=== PATIENT | female | born 1950 | race Caucasian/White ===

== ENCOUNTER → 2019-11-08 | Outpatient (CLI) | payer MEDICARE, BC | END | disposition home or self-care (01) | LOC: LABWHC1 13:10 | PROVIDERS: ATTEND Family Medicine | DX: Z11.59 Encounter for screening for other viral diseases (principal) | CPT/HCPCS: U0003; C9803 ==

== ENCOUNTER → 2019-12-04 | Outpatient (CLI) | payer MEDICARE, BC ==
--- NOTE | 2019-12-04 12:53 | CT ---
EXAMINATION TYPE: CT cervical spine wo con DATE OF EXAM: 12/04/2019 COMPARISON: None HISTORY: Neck pain after injury x2 weeks CT DLP: 338 mGycm Automated exposure control for dose reduction was used. TECHNIQUE: CT scan of the cervical spine is obtained without contrast, axial images are obtained, sa gittal and coronal reformatted images are also reviewed. FINDINGS: Cervical spine is visualized in its entirety from C1 through upper thoracic levels. There is straight ening and mild reversal of the cervical lordosis. No acute fracture or dislocation. Grade 1 anterolis thesis of C4 on C5. Marked degenerative disc disease, disc space narrowing, anterior and posterior os teophytic spurring, uncovertebral hypertrophy, and facet arthropathy, with varying degrees of neural foramina narrowing and canal stenosis. Moderate canal stenosis at C5-C6 and C6-C7. Prevertebral soft tissue within normal limits. Atlantoaxial relationship preserved with degenerative change. Thyroid gland is heterogeneously enlarged bilaterally with multiple hyperdense nodules. IMPRESSION: 1. No acute fracture or dislocation evident in the cervical spine. 2. Marked degenerative changes with moderate canal stenosis at C5-C6 and C6-C7. 2. Heterogenous enlarged thyroid gland bilaterally with multiple hyperdense nodules. Follow-up with n onemergent outpatient thyroid ultrasound or prior available outside imaging is recommended.
--- NOTE | 2019-12-04 13:27 | CT ---
EXAMINATION TYPE: CT brain wo con DATE OF EXAM: 12/04/2019 HISTORY: Head injury 2 weeks ago Automated Exposure Control for Dose Reduction was Utilized. TECHNIQUE: CT scan of the head is performed without contrast. COMPARISON: None FINDINGS: There is no acute intracranial hemorrhage, midline shift, or mass effect identified. Mild periventric ular patchy white matter hypodensities likely sequela of chronic microvascular ischemic changes. The ventricles, sulci, and cisterns are normal in size and configuration. No extra-axial fluid collection. Bones and extracranial soft tissues are intact. The globes are gross ly symmetric. Visualized sinuses and mastoid air cells are clear. IMPRESSION: No acute intracranial hemorrhage, midline shift, or mass effect.
== END | disposition home or self-care (01) ==
LOC: RADCTMAIN 12:10
PROVIDERS: ATTEND Family Medicine
DX: M48.02 Spinal stenosis, cervical region (principal); M47.892 Other spondylosis, cervical region; S09.90XA Unspecified injury of head, initial encounter; S13.9XXA Sprain of joints and ligaments of unspecified parts of neck, initial encounter; E04.9 Nontoxic goiter, unspecified
CPT/HCPCS: 70450; 72125

== ENCOUNTER → 2020-05-05 | Outpatient (CLI) | payer MEDICARE, BC ==
--- NOTE | 2020-05-05 15:02 | XR ---
EXAMINATION TYPE: XR chest 2V DATE OF EXAM: 05/05/2020 COMPARISON: NONE TECHNIQUE: PA and lateral views submitted. HISTORY: Cough FINDINGS: The lungs are clear and there is no pneumothorax, pleural effusion, or focal pneumonia. Heart size normal. Atherosclerotic change aorta. No overt failure. Hypertrophic and degenerative change of the s pine. Hyperinflation of the lungs. IMPRESSION: 1. No acute process.
--- NOTE | 2020-05-05 16:34 | US ---
EXAMINATION TYPE: US thyroid st tissue head/neck DATE OF EXAM: 05/05/2020 COMPARISON: CT cervical spine 12/04/2019 CLINICAL HISTORY: 69-year-old female E04.1 thyroid nodule. Follow up from previous CT, history of thy roid FNA GLAND SIZE: Right Lobe: 4.5 x 1.4 x 1.8 cm Overall Parenchyma: homogenous Left Lobe: 4.8 x 1.6 x 1.7 cm Overall Parenchyma: homogeneous Isthmus Thickness: 0.2 cm NODULES RIGHT: # of nodules measured on right: 3 1. 0.8 X 0.4 x 0.6 cm lateral mid pole spongiform nodule, which is wider than tall, with smooth mar gins, without echogenic foci. Prior size: no previous 2. 0.5 X 0.4 x 0.5 cm mid pole colloid cyst, with echogenic foci. Prior size: no previous 3. 0.9 X 0.5 x 0.9 cm medial mid pole heterogeneous hypoechoic nodule, which is wider than tall, wi th smooth margins, without echogenic foci. Prior size: no previous LEFT: # of nodules measured on left: 2 1. 1.3 X 0.7 x 1.0 cm lateral mid pole solid or almost completely solid, hypoechoic nodule, which i s wider than tall, with smooth margins, without echogenic foci. Prior size: no previous 2. 0.4 X 0.3 x 0.4 cm lateral inferior pole very hypoechoic nodule with posterior through transmiss ion, which is wider than tall, with smooth margins, without echogenic foci. Prior size: no previous ISTHMUS: # of nodules measured in the isthmus: 0 Bilateral neck scanned, no evidence of lymphadenopathy. Work Measurement Engineer notes: Multiple nodules seen bilaterally with largest described above. IMPRESSION: 1. Multiple nodules with borderline thyromegaly. Correlate for multinodular goiter. 2. The largest nodule is a solid TR4 nodule measuring 1.3 cm at the left midpole. Follow-up recommend ed. This can be sampled if it reaches 1.5 cm..
== END | disposition home or self-care (01) ==
LOC: RADUSWWP 13:24
PROVIDERS: ATTEND Internal Medicine Endocrinology, Diabetes & Metabolism
DX: E04.2 Nontoxic multinodular goiter (principal); R05 Cough
CPT/HCPCS: 71046; 76536

== ENCOUNTER → 2020-06-20 | Outpatient (CLI) | payer MEDICARE, BC ==
--- NOTE | 2020-06-20 14:48 | US ---
EXAMINATION TYPE: US kidneys/renal and bladder DATE OF EXAM: 06/20/2020 COMPARISON: NONE CLINICAL HISTORY: 69-year-old female N18.9 Chronic kidney disease. CKD TECHNIQUE: Multiple sonographic images of the kidneys and bladder are obtained. FINDINGS: EXAM MEASUREMENTS: Right Kidney: 8.2 x 4.9 x 4.2 cm Left Kidney: 10.0 x 5.0 x 4.1 cm Right Kidney: atrophic, no evidence of hydronephrosis Left Kidney: no evidence of hydronephrosis Bladder: No gross abnormality. Bilateral Jets seen: no IMPRESSION: Slightly small/atrophic right kidney. No hydronephrosis.
== END | disposition home or self-care (01) ==
LOC: RADUSWWP 12:16
PROVIDERS: ATTEND Family Medicine
DX: N18.9 Chronic kidney disease, unspecified (principal); N26.1 Atrophy of kidney (terminal)
CPT/HCPCS: 76770

== ENCOUNTER 2020-10-13 10:05 | Emergency (ER) | payer MEDICARE, BC ==
[2020-10-13 10:28] VITALS: TEMP 98.1
--- NOTE | 2020-10-13 11:36 | ED ---
General Adult HPI - General Chief complaint: Extremity Problem,Nontraumatic Stated complaint: feet pain & swelling Source: patient, RN notes reviewed, old records reviewed Mode of arrival: ambulatory Limitations: no limitations - History of Present Illness Initial comments: 69-year-old well-appearing well-nourished female, alert and oriented 4, presents to the emergency room with 1 week of bilateral lower extremity swelling. Patient states that she sees Dr. Winslow and was taken off her antihypertensive with hydrochlorothiazide and put on amlodipine 2.5 mg. She started to notice that her feet have been swelling and painful. She denies any cough or chest pain. No fevers, nausea, vomiting or diarrhea. She states that the pain and swelling is so significant that it hurts to walk, pain is 9 out of 10. She states that she googled her symptoms and it was exactly matching to plantar fasciitis however her sister said that it is not normally both feet and wanted her assessed. Patient has a history of hypertension and hypercholesterolemia. Patient denies any injuries. She states that the pain and swelling does not get better with elevation or rest. -: week(s) (1) Location: lower extremity (Bilateral lower extremity swelling) Quality: aching Consistency: constant Improves with: none Worsens with: other (Standing or walking) Associated Symptoms: denies other symptoms Treatments Prior to Arrival: none - Related Data Home Medications Medication Instructions Recorded Confirmed HYDROcodone/APAP 5-325MG [[place] 0.5 - 1 tab PO TID PRN 10/13/20 10/13/20 5-325] Simvastatin [Zocor] 20 mg PO DAILY 10/13/20 10/13/20 amLODIPine [Norvasc] 2.5 mg PO DAILY 10/13/20 10/13/20 Allergies Allergy/AdvReac Type Severity Reaction Status Date / Time No Known Allergies Allergy Verified 10/13/20 12:12 Review of Systems ROS Statement: Those systems with pertinent positive or pertinent negative responses have been documented in the HPI. ROS Other: All systems not noted in ROS Statement are negative. Past Medical History Past Medical History: Hyperlipidemia, Hypertension History of Any Multi-Drug Resistant Organisms: None Reported Past Surgical History: Orthopedic Surgery Additional Past Surgical History / Comment(s): bilateral hip replacement Past Psychological History: No Psychological Hx Reported Smoking Status: Never smoker Past Alcohol Use History: Occasional Past Drug Use History: None Reported General Exam Limitations: no limitations General appearance: alert, in no apparent distress Head exam: Present: atraumatic, normocephalic, normal inspection Eye exam: Present: normal appearance, PERRL, EOMI. Absent: scleral icterus, conjunctival injection, periorbital swelling ENT exam: Present: normal exam, normal oropharynx, mucous membranes moist Neck exam: Present: normal inspection, full ROM. Absent: tenderness, meningismus, lymphadenopathy, thyromegaly Respiratory exam: Present: normal lung sounds bilaterally. Absent: respiratory distress, wheezes, rales, rhonchi, stridor, chest wall tenderness, accessory muscle use, decreased breath sounds, prolonged expiratory Cardiovascular Exam: Present: regular rate, normal rhythm, normal heart sounds. Absent: systolic murmur, diastolic murmur, rubs, gallop, clicks GI/Abdominal exam: Present: soft, normal bowel sounds. Absent: distended, tenderness, guarding, rebound, rigid Extremities exam: Present: normal inspection, full ROM, tenderness (Bilateral feet), normal capillary refill, pedal edema (Bilateral). Absent: joint swelling, calf tenderness Left Foot/Toe exam: Present: tenderness, swelling. Absent: erythema Neurovascular tendon exam: Absent: extremity cold to touch, pallor Right Ankle exam: Present: tenderness, swelling. Absent: erythema Neurovascular tendon exam: Present: no vascular compromise. Absent: pulse deficit, abnormal cap refill, extremity cold to touch, foot drop Back exam: Present: normal inspection, full ROM. Absent: tenderness, CVA tenderness (R), CVA tenderness (L), muscle spasm, paraspinal tenderness, vertebral tenderness, rash noted Neurological exam: Present: alert, oriented X3, CN II-XII intact Psychiatric exam: Present: normal affect, normal mood Skin exam: Present: warm, dry, intact, normal color. Absent: rash, cyanosis, diaphoretic, erythema, petechiae, pallor, mottled Course Vital Signs 10/13/20 10/13/20 10:23 13:31 Temperature 98.1 F Pulse Rate 80 72 Respiratory 16 18 Rate Blood Pressure 160/89 145/67 O2 Sat by Pulse 97 98 Oximetry EKG Findings - EKG Results: EKG: sinus rhythm (Ventricular rate of 60, DE interval 0.156, QRS of 0.86, QTC of 0.397) Medical Decision Making - Medical Decision Making EKG shows normal sinus rhythm with no ectopy. Troponin is negative at 0.012. Chest x-ray is negative for any infiltrates or pulmonary edema. Patient has no chest pain or shortness of breath or cough. She has bilateral pedal edema +1. She was taken off her hydrochlorothiazide 2 weeks ago and for the past week has had leg swelling. Patient was given 20 mg of Lasix in the emergency room. She will be discharged home to follow up with her primary care doctor. Return if worsening symptoms. Case discussed with Dr. Johansen - Lab Data Result diagrams: 10/13/20 12:11 10/13/20 12:11 Lab Results 10/13/20 10/13/20 10/13/20 Range/Units 12:11 12:11 12:11 WBC 7.6 (3.8-10.6) k/uL RBC 4.95 (3.80-5.40) m/uL Hgb 14.5 (11.4-16.0) gm/dL Hct 44.9 (34.0-46.0) % MCV 90.7 (80.0-100.0) fL MCH 29.2 (25.0-35.0) pg MCHC 32.2 (31.0-37.0) g/dL RDW 13.0 (11.5-15.5) % Plt Count 244 (150-450) k/uL MPV 7.1 Neutrophils % 67 % Lymphocytes % 22 % Monocytes % 6 % Eosinophils % 3 % Basophils % 1 % Neutrophils # 5.1 (1.3-7.7) k/uL Lymphocytes # 1.7 (1.0-4.8) k/uL Monocytes # 0.5 (0-1.0) k/uL Eosinophils # 0.2 (0-0.7) k/uL Basophils # 0.1 (0-0.2) k/uL Sodium 140 (137-145) mmol/L Potassium 3.9 (3.5-5.1) mmol/L Chloride 105 (98-107) mmol/L Carbon Dioxide 30 (22-30) mmol/L Anion Gap 5 mmol/L BUN 15 (7-17) mg/dL Creatinine 0.95 (0.52-1.04) mg/dL Est GFR (CKD-EPI)AfAm 70 (>60 ml/min/1.73 sqM) Est GFR (CKD-EPI)NonAf 61 (>60 ml/min/1.73 sqM) Glucose 108 H (74-99) mg/dL Calcium 9.8 (8.4-10.2) mg/dL Magnesium 1.8 (1.6-2.3) mg/dL Total Bilirubin 0.6 (0.2-1.3) mg/dL AST 24 (14-36) U/L ALT 16 (4-34) U/L Alkaline Phosphatase 77 (38-126) U/L Troponin I (0.000-0.034) ng/mL NT-Pro-B Natriuret Pep pg/mL Total Protein 6.8 (6.3-8.2) g/dL Albumin 4.1 (3.5-5.0) g/dL Urine Color Light Yellow Urine Appearance Clear (Clear) Urine pH 5.0 (5.0-8.0) Ur Specific [place] 1.005 (1.001-1.035) Urine Protein Negative (Negative) Urine Glucose (UA) Negative (Negative) Urine Ketones Negative (Negative) Urine Blood Negative (Negative) Urine Nitrite Negative (Negative) Urine Bilirubin Negative (Negative) Urine Urobilinogen <2.0 (<2.0) mg/dL Ur Leukocyte Esterase Negative (Negative) 10/13/20 10/13/20 Range/Units 12:11 12:11 WBC (3.8-10.6) k/uL RBC (3.80-5.40) m/uL Hgb (11.4-16.0) gm/dL Hct (34.0-46.0) % MCV (80.0-100.0) fL MCH (25.0-35.0) pg MCHC (31.0-37.0) g/dL RDW (11.5-15.5) % Plt Count (150-450) k/uL MPV Neutrophils % % Lymphocytes % % Monocytes % % Eosinophils % % Basophils % % Neutrophils # (1.3-7.7) k/uL Lymphocytes # (1.0-4.8) k/uL Monocytes # (0-1.0) k/uL Eosinophils # (0-0.7) k/uL Basophils # (0-0.2) k/uL Sodium (137-145) mmol/L Potassium (3.5-5.1) mmol/L Chloride (98-107) mmol/L Carbon Dioxide (22-30) mmol/L Anion Gap mmol/L BUN (7-17) mg/dL Creatinine (0.52-1.04) mg/dL Est GFR (CKD-EPI)AfAm (>60 ml/min/1.73 sqM) Est GFR (CKD-EPI)NonAf (>60 ml/min/1.73 sqM) Glucose (74-99) mg/dL Calcium (8.4-10.2) mg/dL Magnesium (1.6-2.3) mg/dL Total Bilirubin (0.2-1.3) mg/dL AST (14-36) U/L ALT (4-34) U/L Alkaline Phosphatase (38-126) U/L Troponin I <0.012 (0.000-0.034) ng/mL NT-Pro-B Natriuret Pep 267 pg/mL Total Protein (6.3-8.2) g/dL Albumin (3.5-5.0) g/dL Urine Color Urine Appearance (Clear) Urine pH (5.0-8.0) Ur Specific [place] (1.001-1.035) Urine Protein (Negative) Urine Glucose (UA) (Negative) Urine Ketones (Negative) Urine Blood (Negative) Urine Nitrite (Negative) Urine Bilirubin (Negative) Urine Urobilinogen (<2.0) mg/dL Ur Leukocyte Esterase (Negative) Disposition Clinical Impression: Leg swelling Disposition: HOME SELF-CARE Condition: Good Instructions (If sedation given, give patient instructions): Leg Edema (ED) Additional Instructions: Return to the emergency room with any shortness of breath or chest pain. Follow-up with the primary care doctor this week. Is patient prescribed a controlled substance at d/c from ED?: No Referrals: Tawnya Cunningham MD [Primary Care Provider] - 1-2 days Time of Disposition: 13:43
[2020-10-13 12:45] LABS: Basophils # (A) 0.1 k/uL (0-0.2); Basophils % (A) 1 %; Eosinophils # (A) 0.2 k/uL (0-0.7); Eosinophils % (A) 3 %; HCT 44.9 % (34.0-46.0); HGB 14.5 gm/dL (11.4-16.0); Lymphocytes # (A) 1.7 k/uL (1.0-4.8); Lymphocytes % (A) 22 %; MCH 29.2 pg (25.0-35.0); MCHC 32.2 g/dL (31.0-37.0); MCV 90.7 fL (80.0-100.0); Mean Platelet Volume 7.1; Monocytes # (A) 0.5 k/uL (0-1.0); Monocytes % (A) 6 %; Neutrophils # (A) 5.1 k/uL (1.3-7.7); Neutrophils % (A) 67 %; Platelet Count 244 k/uL (150-450); RBC 4.95 m/uL (3.80-5.40); WBC 7.6 k/uL (3.8-10.6)
[2020-10-13 12:49] LABS: Appearance,Urine Clear (Clear); Bilirubin,Urine Negative (Negative); Blood,Urine Negative (Negative); Color,Urine Light Yellow; Glucose,Urine (UA) Negative (Negative); Ketones,Urine Negative (Negative); Leukocyte Esterase,Urine Negative (Negative); Nitrite,Urine Negative (Negative); Protein,Urine Negative (Negative); Specific Gravity,Urine 1.005 (1.001-1.035); Urobilinogen,Urine <2.0 mg/dL (<2.0)
[2020-10-13 12:50] LABS: Albumin 4.1 g/dL (3.5-5.0); Calcium 9.8 mg/dL (8.4-10.2); Magnesium 1.8 mg/dL (1.6-2.3); Potassium 3.9 mmol/L (3.5-5.1); Total Bilirubin 0.6 mg/dL (0.2-1.3); Total Protein 6.8 g/dL (6.3-8.2)
--- NOTE | 2020-10-13 12:51 | XR ---
EXAMINATION TYPE: XR chest 2V DATE OF EXAM: 10/13/2020 COMPARISON: 05/05/2020 HISTORY: Shortness of breath TECHNIQUE: Frontal and lateral views of the chest are obtained. FINDINGS: Scattered senescent parenchymal changes noted. Hyperinflation compatible with COPD. No evidence for infiltrate. No evidence for atelectasis. Heart size is stable. Mediastinal structures are stable and grossly unremarkable. No evidence for hilar prominence. Degenerative changes dorsal spine. IMPRESSION: 1. No evidence for acute pulmonary disease.
[2020-10-13 13:32] VITALS: BP 145/67; PULSE 72; RESP 18
[2020-10-13] MEDS ORDERED: FUROSEMIDE 20 MG TAB PO STA (13:41)
== END 2020-10-13 14:12 | disposition home or self-care (01) ==
LOC: EC 10:05
DX: M79.89 Other specified soft tissue disorders (principal); M79.671 Pain in right foot; M79.672 Pain in left foot; I10 Essential (primary) hypertension; E78.5 Hyperlipidemia, unspecified; E78.00 Pure hypercholesterolemia, unspecified; Z79.899 Other long term (current) drug therapy; Z96.643 Presence of artificial hip joint, bilateral
CPT/HCPCS: 36415; 71046; 80053; 81003; 83735; 83880; 84484; 85025; 93005; 99284

== ENCOUNTER → 2020-11-07 | Outpatient (CLI) | payer MEDICARE, BC ==
[2020-11-07 15:01] LABS: Appearance,Urine Clear (Clear); Bilirubin,Urine Negative (Negative); Blood,Urine Negative (Negative); Color,Urine Light Yellow; Glucose,Urine (UA) Negative (Negative); Ketones,Urine Negative (Negative); Leukocyte Esterase,Urine Negative (Negative); Nitrite,Urine Negative (Negative); Protein,Urine Negative (Negative); Specific Gravity,Urine 1.006 (1.001-1.035); Urobilinogen,Urine <2.0 mg/dL (<2.0)
[2020-11-07 23:33] LABS: HCT 47.3 % (37.2-46.3); HGB 14.6 g/dL (12.0-15.0); MCH 28.2 pg (27.0-32.0); MCHC 30.9 g/dL (32.0-37.0); MCV 91.3 fL (80.0-97.0); Mean Platelet Volume 9.4 fL (9.5-12.2); Platelet Count 251 X 10*3/uL (140-440); RBC 5.18 X 10*6/uL (4.10-5.20); RDW 12.8 % (11.5-14.5)
[2020-11-08 13:13] LABS: Ferritin 131.9 ng/mL (10.0-291.0)
[2020-11-08 13:30] LABS: % Iron Saturation 33.02 (12.00-45.00); African American GFR (CKD) 52.7 (60.0-200.0); Albumin 4.4 g/dL (3.80-4.90); Albumin/Globulin Ratio 1.57 (1.60-3.17); Anion Gap 15.6 mmol/L (4.00-12.00); Calcium 9.8 mg/dL (8.7-10.3); Carbon Dioxide 25.4 mmol/L (21.6-31.8); Globulin 2.8 g/dL (1.6-3.3); Magnesium 1.8 mg/dL (1.5-2.4); Non-African American GFR(CKD) 45.4 (60.0-200.0); Potassium 3.4 mmol/L (3.5-5.5); Total Bilirubin 0.8 mg/dL (0.3-1.2); Total Protein 7.2 g/dL (6.2-8.2)
[2020-11-08 18:54] LABS: Uric Acid 8.7 mg/dL (2.9-7.7)
== END | disposition home or self-care (01) ==
LOC: LABWHC1 13:46
PROVIDERS: ATTEND Internal Medicine
DX: N18.31 Chronic kidney disease, stage 3a (principal); N39.0 Urinary tract infection, site not specified; N25.81 Secondary hyperparathyroidism of renal origin; D64.9 Anemia, unspecified; E55.9 Vitamin D deficiency, unspecified; M10.9 Gout, unspecified
CPT/HCPCS: 36415; 80053; 81003; 82306; 82728; 83540; 83550; 83735; 83970; 84100; 84550; 85027

== ENCOUNTER → 2020-12-23 | Outpatient (CLI) | payer MEDICARE, BC ==
--- NOTE | 2020-12-23 14:37 | US ---
EXAMINATION TYPE: US thyroid st tissue head/neck DATE OF EXAM: 12/23/2020 COMPARISON: Thyroid ultrasound May 05, 2020 CLINICAL HISTORY: E04.2 NONTOXIC MULTINODULAR GOITER. Thyroid nodules, history FNA GLAND SIZE: Right Lobe: 4.4 x 1.8 x 2.1 cm Overall Parenchyma: homogenous Left Lobe: 4.2 x 1.4 x 1.6 cm Overall Parenchyma: homogeneous Isthmus Thickness: 0.1 cm NODULES RIGHT: # of nodules measured on right: multiple subcentimeter nodules with largest described below 1. 0.8 X 0.5 x 1.0 cm, mid medial, mixed cystic and solid, hypoechoic nodule, which is wider than t all, with smooth margins, without echogenic foci. Prior size: 0.9 x 0.5 x 0.9 cm LEFT: # of nodules measured on left: 1 1. 1.3 X 0.7 x 0.9 cm, mid lateral, solid or almost completely solid, hypoechoic nodule, which is w ider than tall, with smooth margins, without echogenic foci. Prior size: 1.3 x 0.7 x 1.0 cm 2. multiple subcentimeter nodules ISTHMUS: # of nodules measured in the isthmus: 0 Bilateral neck scanned, no evidence of lymphadenopathy. Homogeneous somewhat small size thyroid with scattered small nodules redemonstrated. IMPRESSION: As above. No new or enlarging greater than 1 cm solid nodules.
[2020-12-23 15:12] LABS: T4, Free (Free Thyroxine) 1.06 ng/dL (0.78-2.19)
== END | disposition home or self-care (01) ==
LOC: RADUSWWP 13:23
PROVIDERS: ATTEND Internal Medicine Endocrinology, Diabetes & Metabolism
DX: E04.2 Nontoxic multinodular goiter (principal)
CPT/HCPCS: 76536; 84439; 84443

== ENCOUNTER → 2021-03-04 | Outpatient (CLI) | payer MEDICARE, BC ==
--- NOTE | 2021-03-04 11:53 | BD ---
EXAMINATION TYPE: Axial Bone Density DATE OF EXAM: 03/04/2021 COMPARISON: NONE CLINICAL HISTORY: Height: 62 Weight: 140.9 FRAX RISK QUESTIONS: Alcohol (3 or more units per day): no Family History (Parent hip fracture): yes Glucocorticoids (More than 3mos): no (Ex: prednisone, prednisolone, methylprednisolone, dexamethasone, and hydrocortisone). History of Fracture in Adulthood: yes Secondary Osteoporosis: 1. Type 1 Diabetes: no 2. Hyperthyroidism: no 3. Menopause before 45: no 4. Malnutrition: no 5. Chronic liver disease: no Rheumatoid Arthritis: no Current Tobacco Use: no RISK FACTORS HISTORY OF: Surgery to Spine/Hip(right/left)/Wrist (right/left): bilateral hip replacements When: 2000 Family History of Osteoporosis: no Active: yes Diet low in dairy products/other sources of calcium: no Postmenopausal woman: yes Lost more than 2 inches in height since high school: just 2 inches MEDICATIONS: blood pressure, water pill, potassium, simvastatin Additional History: EXAM MEASUREMENTS: Bone mineral densitometry was performed using the [employer]. Bone mineral density as measured about the Lumbar spine is: ----- L1-L4(G/cm2): 1.666 T Score Values are as follows: ----- L2: 3.5 ----- L3: 5.0 ----- L4: 5.2 ----- L1-L4: 4.0 Bone mineral density : baseline Bone mineral density about the R Wrist (g/cm2): 0.674 T Score values are as follows: -----Dist. R+U: -1.2 -----Prox. R+U: 0.2 -----Radius total: 0.0 Bone mineral density : baseline IMPRESSION: Osteopenia (T Score between -2.5 and -1). There is slightly increased risk of fracture and the patient may be considered for treatment. Re-Screen 2-5 years. NOTE: T-SCORE=SD OF THE YOUNG ADULT MEAN.
--- NOTE | 2021-03-06 11:21 | MM ---
Reason for exam: screening (asymptomatic). Last mammogram was performed 3 years and 2 months ago. History: Patient is postmenopausal. Physical Findings: A clinical breast exam by your physician is recommended on an annual basis and results should be correlated with mammographic findings. MG 3D Screening Mammo W/Cad Bilateral CC and MLO view(s) were taken. Prior study comparison: January 13, 2018, mammogram, performed at [facility]. January 06, 2018, mammogram, performed at [facility]. November 15, 2016, mammogram, performed at [facility]. There are scattered fibroglandular densities. There is chronic nodularity in the left central CC view. No significant changes when compared with prior studies. ASSESSMENT: Benign, BI-RAD 2 RECOMMENDATION: Routine screening mammogram of both breasts in 1 year.
== END | disposition home or self-care (01) ==
LOC: RADBDWWP 10:58
PROVIDERS: ATTEND Family Medicine
DX: Z12.31 Encounter for screening mammogram for malignant neoplasm of breast (principal); M85.831 Other specified disorders of bone density and structure, right forearm; Z78.0 Asymptomatic menopausal state
CPT/HCPCS: 77063; 77067; 77080

== ENCOUNTER → 2021-04-21 | Outpatient (CLI) | payer MEDICARE ==
[2021-04-21 15:35] LABS: Appearance,Urine Cloudy (Clear); Bacteria,Urine Occasional /hpf; Bilirubin,Urine Negative (Negative); Blood,Urine Negative (Negative); Color,Urine Yellow; Glucose,Urine (UA) Negative (Negative); Ketones,Urine Negative (Negative); Leukocyte Esterase,Urine Negative (Negative); Mucus,Urine Rare /hpf; Nitrite,Urine Negative (Negative); PH, Urine 5.5 (5.0-8.0); Protein,Urine Trace (Negative); RBC,Urine 1 /hpf (0-5); Specific Gravity,Urine 1.025 (1.001-1.035); Squamous Epithelial Cell,Urine 18 /hpf (0-4); Urobilinogen,Urine <2.0 mg/dL (<2.0); WBC,Urine 2 /hpf (0-5)
[2021-04-21 18:18] LABS: HCT 48.7 % (37.2-46.3); HGB 15.4 g/dL (12.0-15.0); MCH 28.6 pg (27.0-32.0); MCHC 31.6 g/dL (32.0-37.0); MCV 90.4 fL (80.0-97.0); Mean Platelet Volume 9.5 fL (9.5-12.2); Platelet Count 257 X 10*3/uL (140-440); RBC 5.39 X 10*6/uL (4.10-5.20); RDW 13.5 % (11.5-14.5); WBC 7.64 X 10*3/uL (4.50-10.00)
[2021-04-21 18:22] LABS: % Iron Saturation 30.01 (12.00-45.00); African American GFR (CKD) 60.1 (60.0-200.0); Albumin 4.3 g/dL (3.8-4.9); Albumin/Globulin Ratio 1.5 (1.60-3.17); Anion Gap 10.5 mmol/L (10.00-18.00); BUN/Creat Ratio 18.22 Ratio (12.00-20.00); Blood Urea Nitrogen 19.5 mg/dL (9.0-27.0); Carbon Dioxide 28.4 mmol/L (20.0-27.5); Globulin 2.8 g/dL (1.6-3.3); Magnesium 1.8 mg/dL (1.5-2.4); Non-African American GFR(CKD) 51.8 (60.0-200.0); Phosphorus 4.1 mg/dL (2.4-5.1); Potassium 3.7 mmol/L (3.5-5.5); Total Bilirubin 0.5 mg/dL (0.30-1.20); Total Protein 7.1 g/dL (6.2-8.2); Uric Acid 6.2 mg/dL (2.9-7.7)
== END | disposition home or self-care (01) ==
LOC: LABWHC1 13:42
PROVIDERS: ATTEND Nurse Practitioner Family
DX: N25.81 Secondary hyperparathyroidism of renal origin (principal); N18.31 Chronic kidney disease, stage 3a; D64.9 Anemia, unspecified; N39.0 Urinary tract infection, site not specified; E55.9 Vitamin D deficiency, unspecified; M10.9 Gout, unspecified
CPT/HCPCS: 36415; 80053; 81001; 82306; 82728; 83540; 83550; 83735; 83970; 84100; 84550; 85027

== ENCOUNTER → 2021-05-12 | Outpatient (CLI) | payer MEDICARE ==
[2021-05-12 19:06] LABS: African American GFR (CKD) 49.3 (60.0-200.0); Anion Gap 11.9 mmol/L (10.00-18.00); BUN/Creat Ratio 13.89 Ratio (12.00-20.00); Blood Urea Nitrogen 17.5 mg/dL (9.0-27.0); Calcium 9.8 mg/dL (8.7-10.3); Carbon Dioxide 28.8 mmol/L (20.0-27.5); Non-African American GFR(CKD) 42.5 (60.0-200.0); Potassium 3.9 mmol/L (3.5-5.5)
== END | disposition home or self-care (01) ==
LOC: LABWHC1 11:59
PROVIDERS: ATTEND Nurse Practitioner Adult Health
DX: N18.31 Chronic kidney disease, stage 3a (principal)
CPT/HCPCS: 36415; 80048

== ENCOUNTER → 2021-07-16 | Outpatient (CLI) | payer MEDICARE, OTHER ==
[2021-07-16 10:35] VITALS: BP 166/73; PULSE 74; RESP 18
--- NOTE | 2021-07-16 10:53 | P.CON ---
Consult Note - . Consult date: 07/16/21 Assessment/Plan:: HISTORY OF PRESENT ILLNESS: 70 -year-old female as a referral from Dr. Tafoya presents today with chronic and severe lower back pain secondary to disc bulges, moderate spinal stenosis, moderate and severe bilateral neural foraminal stenoses, facet arthropathy and right L2 nerve root impingement for evaluation. She states her lower back pain is 2 out of 10 in intensity, dull, achy with sharp, stabbing pain radiating to the left SI joint and left lower extremity. Pain escalates as high as 10 out of 10 in the lower back and left lower extremity with walking and bending. Left lower extremity also experiences occasional numbness. Pain is relieved with medications ([place] from Dr. Steel), heat, chiropractic treatments in the past which were worsening pain and patient will not go back, daily home stretching regimen and rest. PMH: HTN, gout, CKD, hyperlipidemia, CAD PSH: Left carpal tunnel release, bilateral total hip arthroplasty, left hip revision SH: Daily tobacco user. Occasional EtOH use. Denies illicit drug use. Patient is not . FH: HTN All: NKDA Meds: See list REVIEW OF ORGAN SYSTEMS: CONSTITUTIONAL: No fevers or chills. No recent weight loss. HEENT: No visual acuity loss, eye pain, difficulties with hearing. No nosebleeds. No difficulty swallowing. RESPIRATORY: Denies any troubles with breathing or dyspnea on exertion. CARDIOVASCULAR: Denies any chest pain, palpitations, or recent heart attacks. GASTROINTESTINAL: Denies fatty food intolerance. Has change in bowel habits and gas bloat. GENITOURINARY: Denies any blood in urine. Has increased urinary frequency. NEUROLOGICAL: + numbness and tingling along the distal extremities. No seizure disorders or headaches. MUSCULOSKELETAL: + back pain SKIN: No skin cancer. No rash. PSYCHIATRIC: Denies current depression or suicidal thoughts. ENDOCRINE: Denies current thyroid disorders. Denies any blood sugar glucose intolerance. HEME/LYMPHATIC: Denies any lumps and bumps around the neck. History of deep venous thrombosis. ALLERGY/IMMUNOLOGY: No immunoglobulin therapy. No immune deficiencies. BREAST: Denies current breast lumps, pain or nipple discharge. Physical Examinations : Constitutional : Cooperative , not in acute distress . HEENT: Neck supple. No Lymphadenopathy. Normal thyroid size . Eyes no ptosis , no icterus, no photophobia . Hearing intact. Normal oropharynx. No Thrush. Respiratory : Chest clear to auscultations bilaterally. No wheezing. No rhonchi. Cardiovascular : Regular rate and rhythm , S1 / S2. No S3 . No S4. Gastrointestinal : Abdomen soft. No tenderness. Bowel sounds x 4. No organomegaly . Genitourinary : Deferred. Neurologic : Cranial nerve II to XII intact. No focal neurological deficits. Psychiatric : alert & oriented x 3. Matching mood & appropriate affect. Judgment & insight intact. Lymphatic No Lymphadenopathy. Musculoskeletal : Cervical Spine Motor strength in the deltoid and biceps: Normal right side. Normal Left side Motor strength biceps and the wrist extensors: Normal right side . Normal left side Motor strength in the triceps muscle: Normal right side. Normal left side Deep tendon reflexes: Normal at the biceps. Normal at Brachioradialis. Normal at triceps Cervical facet loading test: positive bilaterally Spurling test: positive bilaterally Neck distraction test: positive bilaterally Trevin sign: positive bilaterally Lumbar spine Motor strength lower extremities ,thigh and legs 5/5 Right side , 5/5 Left side Deep tendon reflexes : Normal Knee Jerk. Normal Ankle Jerk Vertebral body tenderness over L3, L4, L5 Lumbar facet Loading Test: positive Right / positive Left over L5-S1, L>R Range of motion of the lumbar spine Flexion 30 degrees, extension 10 degrees Straight Leg Raise test: Left/ Right positive at degree [place] Lilia test: positive right / positive left. Severe tenderness over the Sacroiliac joint on the Right / Left sides [place] test: positive bilaterally Seated flexion test: positive bilaterally. Imaging: MRI without contrast of the lumbar spine from 06/17/21 reviewed Assessment/ Plan : Diagnoses: Lumbar spondylosis, Lumbar DDD M43.16, M47.816 Recommendation of 6 weeks stent of physical therapy to be integrated with massage, 3 times a week 6 weeks. Patient is disinterested in any procedures at this time. Patient may return to our clinic on an as-needed basis. All questions answered. I have spent greater than 50 minutes on patient care today. Dr Car was available by phone for the evaluation of this patient. The time was used to review the medical records including relevant urine studies and Prescription history (MAPs), review of the available imaging, evaluation and examination of the patient, coordination of care with the medical staff and if applicable referring physicians, as well as creation of the medical record PQRS Measure Charge Sheet Mode of Arrival: Ambulatory - Pain Location Lower Back Non-Pharmacological Interventions: Chiropractic Treatment, Heat, Home Exercise, Position/Reposition, Sitting Pharmacological Interventions: PRN Medication PQRS Narrative: Blood Pressure 166/73 Pain Intensity [Lower Back] 2 Scale Used Numeric (1 - 10) Hx Alcohol Use (MH) No Home Medications: Ambulatory Orders HYDROcodone/APAP 5-325MG [[place] 5-325] 0.5 - 1 tab PO TID PRN 10/13/20 Simvastatin [Zocor] 20 mg PO DAILY 10/13/20 amLODIPine [Norvasc] 2.5 mg PO DAILY 10/13/20
== END ==
LOC: PNWHC3 10:04
PROVIDERS: ATTEND Specialist
DX: M51.36 Other intervertebral disc degeneration, lumbar region (principal); M47.816 Spondylosis without myelopathy or radiculopathy, lumbar region; M51.26 Other intervertebral disc displacement, lumbar region; M48.061 Spinal stenosis, lumbar region without neurogenic claudication; G89.29 Other chronic pain; I13.0 Hypertensive heart and chronic kidney disease with heart failure and stage 1 through stage 4 chronic kidney disease, or unspecified chronic kidney disease; N18.9 Chronic kidney disease, unspecified; E78.5 Hyperlipidemia, unspecified; I25.10 Atherosclerotic heart disease of native coronary artery without angina pectoris
CPT/HCPCS: 99211

== ENCOUNTER → 2021-10-20 | Outpatient (CLI) | payer MEDICARE, OTHER ==
[2021-10-20 13:45] LABS: Creatinine,Urine Random 236.2 mg/dL; Protein/Creatinine Ratio,Urine 0.025
[2021-10-20 18:08] LABS: Basophils # (A) 0.06 X 10*3/uL (0.00-0.10); Basophils % (A) 0.8 %; Eosinophils % (A) 4.2 %; HCT 49.4 % (37.2-46.3); HGB 15.4 g/dL (12.0-15.0); Immature Grans, Automated 0.4 %; Lymphocytes # (A) 1.96 X 10*3/uL (0.90-5.00); Lymphocytes % (A) 27.7 %; MCH 28.4 pg (27.0-32.0); MCHC 31.2 g/dL (32.0-37.0); MCV 91.1 fL (80.0-97.0); Mean Platelet Volume 9.5 fL (9.5-12.2); Monocytes # (A) 0.46 X 10*3/uL (0.20-1.00); Monocytes % (A) 6.5 %; NRBC Per 100 WBC 0 /100 WBCS (0.0-0.0); Neutrophils # (A) 4.26 X 10*3/uL (1.80-7.70); Neutrophils % (A) 60.4 %; Platelet Count 261 X 10*3/uL (140-440); RBC 5.42 X 10*6/uL (4.10-5.20); RDW 13.2 % (11.5-14.5); WBC 7.07 X 10*3/uL (4.50-10.00)
[2021-10-20 18:50] LABS: Albumin 4.4 g/dL (3.8-4.9)
[2021-10-20 19:50] LABS: % Iron Saturation 30.53 (12.00-45.00); African American GFR (CKD) 55.1 (60.0-200.0); Anion Gap 11.1 mmol/L (10.00-18.00); BUN/Creat Ratio 9.74 Ratio (12.00-20.00); Blood Urea Nitrogen 11.2 mg/dL (9.0-27.0); Calcium 9.6 mg/dL (8.7-10.3); Carbon Dioxide 29.6 mmol/L (20.0-27.5); Non-African American GFR(CKD) 47.5 (60.0-200.0); Phosphorus 3.1 mg/dL (2.4-5.1); Potassium 4.2 mmol/L (3.5-5.5); Uric Acid 8.2 mg/dL (2.9-7.7)
== END | disposition home or self-care (01) ==
LOC: LABWHC1 12:19
PROVIDERS: ATTEND Nurse Practitioner Adult Health
DX: N18.31 Chronic kidney disease, stage 3a (principal); E55.9 Vitamin D deficiency, unspecified; D64.9 Anemia, unspecified; E21.3 Hyperparathyroidism, unspecified; M10.9 Gout, unspecified; N39.0 Urinary tract infection, site not specified
CPT/HCPCS: 36415; 80048; 82040; 82306; 82570; 82728; 83540; 83550; 83735; 83970; 84100; 84156; 84550; 85025

== ENCOUNTER → 2022-01-07 | Outpatient (CLI) | payer MEDICARE, OTHER ==
--- NOTE | 2022-01-07 15:10 | US ---
EXAMINATION TYPE: US thyroid st tissue head/neck DATE OF EXAM: 01/07/2022 COMPARISON: US 2020 CLINICAL HISTORY: E04.2 NONTOXIC MULTINODULAR GOITER. GLAND SIZE: Right Lobe: 4.9 x 1.7 x 1.9 cm Overall Parenchyma: heterogenous Left Lobe: 4.9 x 1.6 x 1.8 cm Overall Parenchyma: heterogeneous Isthmus Thickness: 0.2 cm NODULES RIGHT: # of nodules measured on right: 2 1. 1.2 X 0.5 x 1.2 cm, lower medial, solid or almost completely solid, hypoechoic nodule, which is wider than tall, with smooth margins, without echogenic foci. Prior size: 0.8 x 0.5 x 1.0 cm 2. 0.4 cm, lower mid, cystic or almost completely cystic, hypoechoic nodule, which is wider than yair l, with smooth margins, without echogenic foci. Prior size: no previous LEFT: # of nodules measured on left: 1 1. 1.3 X 0.7 x 0.8 cm, mid lateral, solid or almost completely solid, hypoechoic nodule, which is w ider than tall, with smooth margins, without echogenic foci. Prior size: 1.3 x 0.7 x 0.9 cm ISTHMUS: # of nodules measured in the isthmus: 0 Bilateral neck scanned, no evidence of lymphadenopathy. Heterogeneous normal-sized thyroid with scattered small nodules. Largest nodules bilaterally are carlos sly stable from most recent ultrasound. IMPRESSION: As above. No significant interval change from most recent ultrasound.
== END | disposition home or self-care (01) ==
LOC: RADUSWWP 14:30
PROVIDERS: ATTEND Internal Medicine Endocrinology, Diabetes & Metabolism
DX: E04.2 Nontoxic multinodular goiter (principal)
CPT/HCPCS: 76536

== ENCOUNTER → 2022-01-19 | Outpatient (CLI) | payer MEDICARE, OTHER ==
[2022-01-20 01:12] LABS: ALT 27 U/L (8-44); AST 26 U/L (13-35); African American GFR (CKD) 51.9 (60.0-200.0); Albumin 4.4 g/dL (3.8-4.9); Albumin/Globulin Ratio 1.83 (1.60-3.17); Alkaline Phosphatase 57 U/L (41-126); BUN/Creat Ratio 13.75 Ratio (12.00-20.00); Blood Urea Nitrogen 16.5 mg/dL (9.0-27.0); Calcium 9.7 mg/dL (8.7-10.3); Carbon Dioxide 30.1 mmol/L (20.0-27.5); Chloride 100 mmol/L (96-109); Globulin 2.4 g/dL (1.6-3.3); Glucose 95 mg/dL (70-110); Non-African American GFR(CKD) 44.8 (60.0-200.0); Potassium 3.5 mmol/L (3.5-5.5); Sodium 142 mmol/L (135-145); Total Protein 6.8 g/dL (6.2-8.2)
[2022-01-20 01:13] LABS: Chol/HDL Ratio 4.15 Ratio; LDL Cholesterol,Calculated 133.6 mg/dL (0.0-131.0)
[2022-01-20 01:31] LABS: Basophils # (A) 0.06 X 10*3/uL (0.00-0.10); Basophils % (A) 0.8 %; Eosinophils # (A) 0.31 X 10*3/uL (0.04-0.35); Eosinophils % (A) 3.9 %; HCT 46.3 % (37.2-46.3); HGB 15.1 g/dL (12.0-15.0); Immature Grans, Automated 0.3 %; Lymphocytes % (A) 31.6 %; MCH 29.1 pg (27.0-32.0); MCHC 32.6 g/dL (32.0-37.0); MCV 89.2 fL (80.0-97.0); Mean Platelet Volume 9.2 fL (9.5-12.2); Monocytes # (A) 0.59 X 10*3/uL (0.20-1.00); Monocytes % (A) 7.5 %; NRBC Per 100 WBC 0 /100 WBCS (0.0-0.0); Neutrophils # (A) 4.43 X 10*3/uL (1.80-7.70); Neutrophils % (A) 55.9 %; Platelet Count 246 X 10*3/uL (140-440); RBC 5.19 X 10*6/uL (4.10-5.20); RDW 13.6 % (11.5-14.5); WBC 7.91 X 10*3/uL (4.50-10.00)
== END | disposition home or self-care (01) ==
LOC: LABWHC1 15:44
PROVIDERS: ATTEND Internal Medicine Endocrinology, Diabetes & Metabolism
DX: Z00.00 Encounter for general adult medical examination without abnormal findings (principal); E04.1 Nontoxic single thyroid nodule; E04.2 Nontoxic multinodular goiter
CPT/HCPCS: 36415; 80053; 80061; 83036; 84439; 84443; 85025

== ENCOUNTER → 2022-04-02 | Outpatient (CLI) | payer MEDICARE, OTHER ==
--- NOTE | 2022-04-05 08:41 | MM ---
Reason for Exam: Screening (asymptomatic). Last mammogram was performed 1 year(s) and 1 month(s) ago. Patient History: Menarche at age 11. First Full-Term at age 15. Postmenopausal. Risk Values: Bethanie 5 year model risk: 1.3%. NCI Lifetime model risk: 3.1%. Prior Study Comparison: 01/06/2018 Screening Mammogram, [facility]. 01/13/2018 Screening Mammogram, [facility]. 03/04/2021 Bilateral Screening Mammogram, [facility]. Tissue Density: There are scattered fibroglandular densities. Findings: Analyzed By CAD. Pattern appears symmetrical and stable. Chronic nodularities within the left breast. No significant interval changes are evident. Benign vascular calcifications present. No suspicious groups of microcalcifications, spiculated or lobular masses, architectural distortion or other secondary signs of malignancy are mammographically apparent. Overall Assessment: Benign, BI-RAD 2 Management: Screening Mammogram of both breasts in 1 year. A negative mammogram report should not preclude additional follow up of suspicious palpable abnormalities. Patient should continue monthly self breast exam. A clinical breast exam by your physician is recommended on an annual basis and results should be correlated with mammographic findings. Electronically signed and approved by: Dimitrios Alston D.O. Radiologis
== END | disposition home or self-care (01) ==
LOC: RADMAMWWP 10:51
PROVIDERS: ATTEND Family Medicine
DX: Z12.31 Encounter for screening mammogram for malignant neoplasm of breast (principal); Z78.0 Asymptomatic menopausal state
CPT/HCPCS: 77063; 77067

== ENCOUNTER → 2023-04-19 | Outpatient (CLI) | payer MEDICARE, OTHER ==
--- NOTE | 2023-04-20 08:22 | MM ---
Reason for Exam: Screening (asymptomatic). Last screening mammogram was performed 12 month(s) ago. Patient History: Menarche at age 11. First Full-Term at age 15. Postmenopausal. Risk Values: Bethanie 5 year model risk: 1.3%. NCI Lifetime model risk: 3.0%. Prior Study Comparison: 01/13/2018 Screening Mammogram, [facility]. 03/04/2021 Bilateral Screening Mammogram, [facility]. 04/02/2022 Bilateral MG 3D screening mammo w/cad, [facility]. Tissue Density: The breast tissue is heterogeneously dense. This may lower the sensitivity of mammography. Findings: Analyzed By CAD. There is no suspicious group of microcalcifications or new suspicious mass in either breast. Overall Assessment: Benign, BI-RAD 2 Management: Screening Mammogram of both breasts in 1 year. . Patient should continue monthly self-breast exams. A clinical breast exam by your physician is recommended on an annual basis. This exam should not preclude additional follow-up of suspicious palpable abnormalities. Note on Bethanie scores and lifetime risk: 1. A Bethanie score greater than 3% is considered moderate risk. If this is the case, consider specialist referral to assess eligibility for a risk reducing agent. 2. If overall lifetime risk for the development of breast cancer is 20% or higher, the patient may qualify for future screening with alternating mammogram and breast MRI. Electronically signed and approved by: Carlos Kenney M.D. Radiologis
== END | disposition home or self-care (01) ==
LOC: RADMAMWWP 13:20
PROVIDERS: ATTEND Family Medicine
DX: Z12.31 Encounter for screening mammogram for malignant neoplasm of breast (principal); Z78.0 Asymptomatic menopausal state
CPT/HCPCS: 77063; 77067

== ENCOUNTER → 2023-04-19 | Outpatient (CLI) | payer MEDICARE, OTHER ==
[2023-04-19 17:50] LABS: ALT 21 U/L (8-44); AST 21 U/L (13-35); Albumin 4.2 g/dL (3.8-4.9); Albumin/Globulin Ratio 1.56 Ratio (1.60-3.17); Alkaline Phosphatase 68 U/L (41-126); BUN/Creat Ratio 16.83 Ratio (12.00-20.00); Blood Urea Nitrogen 20.2 mg/dL (9.0-27.0); Calcium 9.9 mg/dL (8.7-10.3); Carbon Dioxide 31.3 mmol/L (21.6-31.8); Chloride 100 mmol/L (96-109); Chol/HDL Ratio 3.51 Ratio; Globulin 2.7 g/dL (1.6-3.3); Glucose 113 mg/dL (70-110); LDL Cholesterol,Calculated 131.9 mg/dL (0.0-131.0); Potassium 3.8 mmol/L (3.5-5.5); Sodium 141 mmol/L (135-145); Total Bilirubin 0.8 mg/dL (0.3-1.2); Total Protein 6.9 g/dL (6.2-8.2); VLDL Calculation 19.72 mg/dL (5.00-40.00)
[2023-04-19 19:40] LABS: Basophils # (A) 0.04 X 10*3/uL (0.00-0.10); Basophils % (A) 0.5 %; Eosinophils % (A) 2.4 %; HCT 50.7 % (37.2-46.3); HGB 16.4 g/dL (12.0-15.0); Lymphocytes # (A) 1.86 X 10*3/uL (0.90-5.00); Lymphocytes % (A) 21.9 %; MCH 29.7 pg (27.0-32.0); MCHC 32.3 g/dL (32.0-37.0); MCV 91.8 FL (80.0-97.0); Mean Platelet Volume 9.4 FL (9.5-12.2); Monocytes # (A) 0.52 X 10*3/uL (0.20-1.00); Monocytes % (A) 6.1 %; NRBC Per 100 WBC 0 X 10*3/uL (0.00-0.01); Neutrophils # (A) 5.83 X 10*3/uL (1.80-7.70); Neutrophils % (A) 68.7 %; Platelet Count 263 X 10*3/uL (140-440); RBC 5.52 X 10*6/uL (4.10-5.20); RDW 13.1 % (11.5-14.5); WBC 8.48 X 10*3/uL (4.50-10.00)
[2023-04-20 05:15] LABS: Microalbumin Creatinine Ratio <4 mg/g Cr (0-30)
== END | disposition home or self-care (01) ==
LOC: LABWHC1 12:51
PROVIDERS: ATTEND Family Medicine
DX: E11.22 Type 2 diabetes mellitus with diabetic chronic kidney disease (principal); N18.30 Chronic kidney disease, stage 3 unspecified
CPT/HCPCS: 36415; 80053; 80061; 82043; 82570; 83036; 85025

== ENCOUNTER → 2023-07-27 | Outpatient (CLI) | payer MEDICARE, OTHER ==
[2023-07-27 15:42] LABS: Creatinine,Urine Random 18.2 mg/dL; Protein/Creatinine Ratio,Urine 0.659
[2023-07-27 18:58] LABS: Basophils # (A) 0.08 X 10*3/uL (0.00-0.10); Basophils % (A) 0.9 %; Eosinophils # (A) 0.36 X 10*3/uL (0.04-0.35); HCT 46.9 % (37.2-46.3); HGB 15.2 g/dL (12.0-15.0); Lymphocytes # (A) 2.17 X 10*3/uL (0.90-5.00); Lymphocytes % (A) 24.4 %; MCH 30.3 pg (27.0-32.0); MCHC 32.4 g/dL (32.0-37.0); MCV 93.4 FL (80.0-97.0); Mean Platelet Volume 9.3 FL (9.5-12.2); Monocytes # (A) 0.58 X 10*3/uL (0.20-1.00); Monocytes % (A) 6.5 %; NRBC Per 100 WBC 0 X 10*3/uL (0.00-0.01); Neutrophils # (A) 5.69 X 10*3/uL (1.80-7.70); Neutrophils % (A) 63.9 %; Platelet Count 237 X 10*3/uL (140-440); RBC 5.02 X 10*6/uL (4.10-5.20); RDW 13.2 % (11.5-14.5); WBC 8.91 X 10*3/uL (4.50-10.00)
[2023-07-27 20:22] LABS: Appearance,Urine Clear (Clear); Bilirubin,Urine Negative (Negative); Blood,Urine Negative (Negative); Color,Urine Yellow (Yellow); Ketones,Urine Negative (Negative); Nitrite,Urine Negative (Negative); PH, Urine 6.5; Specific Gravity,Urine 1.004 (1.001-1.030); Urobilinogen,Urine 0.2 E.U./DL
[2023-07-27 20:26] LABS: % Iron Saturation 28.96 (12.00-45.00); Albumin 4.3 g/dL (3.8-4.9); Blood Urea Nitrogen 18.1 mg/dL (9.0-27.0); Calcium 9.9 mg/dL (8.7-10.3); Carbon Dioxide 27.1 mmol/L (21.6-31.8); Chloride 101 mmol/L (96-109); Glucose 99 mg/dL (70-110); Iron 95 UG/DL (50-170); Magnesium 1.7 mg/dL (1.5-2.4); Phosphorus 3.8 mg/dL (2.4-5.1); Potassium 3.6 mmol/L (3.5-5.5); Sodium 140 mmol/L (135-145); T4, Free (Free Thyroxine) 0.92 ng/dL (0.80-1.80); Total Iron Binding Capacity 328 UG/DL (228-460); Uric Acid 6.9 mg/dL (2.9-7.7)
[2023-07-28 14:04] LABS: Free Kappa Lt Chain Qnt, Serum 3.33 mg/dL (0.33-1.94); Free Lambda Lt Chain Qnt, Seru 1.81 mg/dL (0.57-2.63)
== END | disposition home or self-care (01) ==
LOC: LABWHC1 14:32
PROVIDERS: ATTEND Internal Medicine
DX: N25.81 Secondary hyperparathyroidism of renal origin (principal); N18.31 Chronic kidney disease, stage 3a; D63.1 Anemia in chronic kidney disease; N39.0 Urinary tract infection, site not specified; E04.2 Nontoxic multinodular goiter; E55.9 Vitamin D deficiency, unspecified; M10.9 Gout, unspecified; R80.9 Proteinuria, unspecified
CPT/HCPCS: 36415; 80048; 81003; 82040; 82306; 82570; 82728; 83540; 83550; 83735; 83883; 83970; 84100; 84156; 84166; 84439; 84443; 84550; 85025; 86334

== ENCOUNTER → 2023-08-08 | Outpatient (CLI) | payer MEDICARE, OTHER ==
--- NOTE | 2023-08-09 07:24 | US ---
EXAMINATION TYPE: US thyroid st tissue head/neck DATE OF EXAM: 08/08/2023 COMPARISON: NONE CLINICAL INDICATION: Female, 72 years old with history of E04.2 NONTOXIC MULTINODULAR GOITER; Goiter GLAND SIZE: Right Lobe: 4.6 x 1.3 x 2.3 cm Overall Parenchyma: homogeneous Left Lobe: 4.7 x 1.6 x 2.1 cm Overall Parenchyma: homogeneous Isthmus Thickness: 0.2 cm NODULES RIGHT: # of nodules measured on right: 2 1. 0.8 X 0.5 x 0.6 cm, lower lateral, solid or almost completely solid, hypoechoic nodule, which is wider than tall, with smooth margins, with echogenic foci. Prior size: 1.0 x 0.5 x 0.7 cm 2. 1.2 X 0.6 x 1.1 cm, lower medial, solid or almost completely solid, hypoechoic nodule, which is wider than tall, with smooth margins, with echogenic foci. TR 4. Prior size: 1.1 x 0.5 x 1.1 cm LEFT: # of nodules measured on left: 2 1. 1.3 X 0.8 x 0.8 cm, mid-lower lateral, solid or almost completely solid, hypoechoic nodule, whic h is wider than tall, with smooth margins, with echogenic foci. TR 4. Prior size: 1.4 x 0.8 x 1.1 cm 2. 0.7 X 0.5 x 0.5 cm, lower lateral, mixed cystic and solid, nodule, which is wider than tall, wi th smooth margins, with echogenic foci. Prior size: 0.7 x 0.5 x 0.6 cm ISTHMUS: # of nodules measured in the isthmus: 0 Bilateral neck scanned, no evidence of lymphadenopathy. IMPRESSION: Moderately suspicious thyroid nodules. Follow-up exam in one year is recommended. 2017 ACR TI-RADS LEVEL: TR-RADS 4 - Moderately Suspicious: Follow if > 1 cm, FNA if > 1.5 cm *Highest TI-RADS level nodule reported
== END | disposition home or self-care (01) ==
LOC: RADUSWWP 15:02
PROVIDERS: ATTEND Internal Medicine Endocrinology, Diabetes & Metabolism
DX: E04.2 Nontoxic multinodular goiter (principal)
CPT/HCPCS: 76536